=== PATIENT | male | born 1940 | race Caucasian/White ===

== ENCOUNTER 2024-11-13 14:07 | Outpatient (AMB) | payer MEDICARE, SELFPAY ==
--- NOTE | 2024-11-13 14:10 | MHC.OFFVIS ---
Vital Signs 11/13/24 14:12 Height 5 ft 10 in Weight 202 lb 13.204 oz BMI 29.1 BP 142/84 H Blood Pressure Location Lt brachial Position Sitting Pulse 84 Pulse Source Pulse Oximeter Pulse Oximetry (%) 95 Oxygen Delivery Method Room Air Intake Visit Reasons: ILD Allergies Sulfa (Sulfonamide Antibiotics) Allergy (Intermediate, Verified 11/13/24 14:17) Vomiting HPI Comments Details: The patient is here for pulmonary evaluation. The patient is an 83-year-old gentleman who has been a lifelong very [place]. The patient has had worsening dyspnea on exertion. Wyui-ul-gxethqcf severity. He has been evaluated by pulmonary in the past at [facility]. 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 Multiple CAT scans have been done. Apparently the last 1 was back in 2023 demonstrating pretty stable disease. He does state that his doctors have told him that this has been some slow progression. He also had pulmonary function studies in 2023 which I personally reviewed demonstrating a mild restrictive ventilatory defect consistent with his interstitial lung disease. What brings him in today is a worsening cough. Congestive in nature. Moderate severity. Worse when he lays flat. Sometimes has a hard time sleeping. He has been evaluated by ENT. He did have significant nasal congestion and also component of upper airway cough syndrome. He has been uncertain treatments with partial improvement. He has tried multiple inhalers without any significant improvement. The patient does have oxygen but uses couple L with activity. We did go for brief walking oximetry indeed he did desaturate down to 88% with minimal activity. At this point the patient does have evidence of chronic bronchitis. Likely a component of microaspiration and potentially reflux disease that can potentially worsen his hypersensitivity disease. The patient should be evaluated for connective tissue diseases and hypersensitivity pneumonitis specially with his line of work. But at this point will go ahead and try to my azithromycin 1st. Will get check an EKG and check a barium swallow. Will follow-up in 2-3 months and see his response to therapy. The patient did not really see much improvement with inhalers will hold off at this time. I do believe that with his chronic bronchitis in Acapella valve will be helpful in mucus clearance. In the meantime will continue with his nasal rinsing and nasal therapy. [facility] Medical History (Updated 11/13/24 @ 21:14 by Librado Dumont MD) Upper airway cough syndrome Chronic bronchitis Emphysema (subcutaneous) (surgical) resulting from a procedure ILD (interstitial lung disease) Chronic cough Review of Systems Const Denies weight loss Eyes Reports no additional complaints ENT Reports nasal congestion, Reports nasal discharge and Reports post nasal drip Card Denies chest pain and Reports dyspnea on exertion Resp Reports chest congestion, Reports cough, Reports dyspnea on exertion and Denies wheezing GI Denies dyspepsia Musc Reports no additional complaints Skin/Breast Denies rash Neuro Reports no additional complaints Jeremiah/Lymph Reports no additional complaints Aller/Immun Denies wheezing Physical Exam Vital Signs: Last Vital Signs Pulse 84 11/13/24 14:12 BP 142/84 H 11/13/24 14:12 Pulse Ox 95 11/13/24 14:12 Oxygen Delivery Method Room Air 11/13/24 14:12 BMI result Body Mass Index 29.1 Const General: comfortable HEENT Head: Yes normocephalic Neck Neck: Yes supple Chest Chest palpation & inspection: normal inspection of the chest Resp Effort & Inspection: normal respiratory effort Auscultation: rales bilateral in the lower lung leon Cardio Heart sounds: S1 normal heart sound present and S2 normal heart sound present GI Palpation (GI): Soft to palpation Skin General skin exam: no rashes or lesions noted Extrem General: Yes no clubbing, cyanosis or edema Assessment & Plan Assessment & Plan (1) Chronic cough: Code(s): R05.3 - Chronic cough Category: Medical (2) ILD (interstitial lung disease): Comment: Probablu UIP, ?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 Code(s): J84.9 - Interstitial pulmonary disease, unspecified Category: Medical (3) Chronic bronchitis: Code(s): J42 - Unspecified chronic bronchitis Category: Medical Qualifiers: Chronic bronchitis type: mixed simple and mucopurulent Qualified Code(s): J41.8 - Mixed simple and mucopurulent chronic bronchitis (4) Upper airway cough syndrome: Code(s): R05.8 - Other specified cough Category: Medical Plan continue nasal therapy start Azithromycin MWF EKG to check QT interval while on macrolide therapy Consider bloodwork for ILD, stable based on latest CT chest Barium swallow should sleep elevated Use portable oxygen 2L/pulse with activity CPT with acapella valve 2 times a day F/U 2 months Orders: Orders FL barium swallow Today K21.9 - Gastro-esophageal reflux disease without esophagitis ECG 12 lead EKG Today J44.9 - Chronic obstructive pulmonary disease, unspecified Medications: New azithromycin Take 1 tablet on Sunday/Sunday/Sunday 250 mg PO 3XW 12 tabs 2RF 28 days K21.9 - Gastro-esophageal reflux disease without esophagitis Coding Level of Care Code New Pt Level 5 (77701) Diagnoses Chronic cough R05.3 ILD (interstitial lung disease) J84.9 Mixed simple and mucopurulent chronic bronchitis J41.8 Chronic bronchitis type: mixed simple and mucopurulent Upper airway cough syndrome R05.8 Time Spent (min) 60
[2024-11-13 14:12] VITALS: BP 142/84; PULSE 84; O2SAT 95; BMI 29.1
--- OUTSIDE RECORDS SUMMARY | 2024-11-13 17:45 | XMS_ITS | Data Portability ---
Author Organization [place] - [facility], Allergy Address [address] [address] Care Team Providers Care Library Customer Service Clerk Name Role Phone [facility] Primary Care Provider [phone] Assessment Encounter Date Assessment Date Assessment LastModified by Organization Details LastModified Time 09/03/2024 09/03/2024 Patient describes a chronic cough since around December. He describes some improvement with nasal regimen prescribed by his ENT in [place] with Flonase and nasal saline. Unfortunately he continues with symptoms. My examination today including fiberoptic nasal endoscopy and laryngoscopy was unremarkable with no signs of infection in the sinuses or abnormality of the larynx. There was no pooling of secretions. 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 He is requesting a second opinion with provider education specialist in the [place] area. [email or web address] Not available 09/03/2024 10:39:33 Plan of Treatment Reminders Order Date Submit Date Provider Last Modified By Organization Details Last Modified Time Details Appointments None recorded. Lab None recorded. Referral pulmonologi st referral - pt wishes to have second opinion for chronic cough in setting of pulmonary fibrosis 2024 025 [email or web address] [place], [address], 14:22:13 Procedures None recorded. Surgeries None recorded. Imaging None recorded. Medication Orders None recorded. Patient TargetsNo targets recorded. Patient InstructionsNo instructions recorded. 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 pt wishes to have second opinion for chronic cough in setting of pulmonary fibrosis Referring Physician: Matt Gutiérrez, Otolaryngology, Encounter Date: 09/03/2024 Problems Name Problem SNOMED Code Status Onset Date Resolution Date Notes Provider Name and Address Organization Details Recorded Time Chronic cough 63577620 Active 025 MATT GUTIÉRREZ MD [address] [place] [address], [place], [address] , [facility] - [facility] 10:36:47 Chronic fibrosis of lung 31278345 Active 025 MATT GUTIÉRREZ MD [address] [place] [address], [place], [address] , [facility] - [facility] 10:39:59 Problem Notes None recorded. Procedures Surgical History Date Name Laterality Status Provider Name and Address Organization Details Recorded Time 09/03/2024 FOL_DP completed MATT GUTIÉRREZ MD [address] [place] [address],[place] [address], [place], [address], [facility] - [facility] 09/03/2024 10:36:39 Imaging Results None recorded. Procedure Notes None recorded. Medical Equipment None Reported. Allergies Allergen ID Allergen Name Allergen Category Reaction Reaction Severity Criticality Documentation Date Start Date Code Code System Note Provider Name and Address Organization Details Recorded Time 786998 Substance with sulfonami de structure and antibacte rial mechanism of action (substanc e) medicatio n Not available Not available Not available 09/03/2024 40103 8003 SNOMED Patricia davis [place] [facility] 10:03:18 Medications Name Sig Start Date Stop Date Status Note LastModified by Organization Details LastModified Time rosuvastatin 20 mg tablet active Not Available Not Available Not Available Vitals Date Recorded Body height Body mass index (BMI) Body weight Provider Name and Address Organization Details Last Updated DateTime 09/03/2024 177.8 cm 28.4 kg/m2 56306.29 g Patricia Romero [place] - [facility] 09/03/2024 10:03:10 Social History None recorded. Functional Status None recorded. Mental Status None recorded. Family History Nothing Reported. Medical History No medical history recorded. Past Encounters Encounter ID Performer Location Encounter Start Date Encounter Closed Date Diagnosis/Indication Diagnosis SNOMED-CT Code Diagnosis ICD10 Code Diagnosis Note [id number] MATT GUTIÉRREZ MD [facility] [address] [place] [address] 09/03/2024 09:44:52 09/03/2024 10:44:49 Chronic cough 75493326 R05.3 Chronic fi brosis of lung 96136384 J84.10 Health Concerns Section Related Observation LastModified by Organization Detai ls LastModified Time None Recorded Concern Status LastModified by Organization Details LastModified Time None Recorded Advance Directives Directive None Recorded Payers Encounter Date Sequence Insurance Name Policy Number Policy Draper Covered Member ID Draper Member ID Guarantor Name 09/03/2024 1 [place] [email or web address] Jeovanny Suazo Baca [id number] Jeovanny Baca 09/03/2024 2 [facility]: [facility] [id number] Jeovanny Suazo Baca [id number] Jeovanny Baca Notes Date Note Type Note Provider Name and Address Organization Details Recorded Time 5 text/html chronic coughnot associated with eatingno resolution with various inhalers5 while gardening he got irritation in lungsCT chest - pulm fibrosis is progressiveintermittent oxygen use when activerx prednisone - no sig responseOTC meds, robitussin no sig response04/14/24 ENT at [place], rx flonase and sinus irrigation, endoscopy noted mucus in sinus. felt dagbmhloafw22/7/24 ENT at [facility] [place] noted improvement on nasal exam MATT GUTIÉRREZ MD 100 [facility], [place], [address], [facility] - [facility] 09/03/2024 10:40:23
== END 2024-11-13 15:06 | disposition home or self-care (01) ==
LOC: HO.HPS 14:08
PROVIDERS: PCP Family Medicine; Referring Provider Otolaryngology; Visit Provider Hospitalist
DX: J84.9 Interstitial pulmonary disease, unspecified (principal); J41.8 Mixed simple and mucopurulent chronic bronchitis
CPT/HCPCS: 99205

== ENCOUNTER → 2024-11-13 14:07 | Outpatient (BNVA) | payer MEDICARE, SELFPAY | PROVIDERS: PCP Family Medicine; Referring Provider Otolaryngology; Visit Provider Hospitalist | DX: J41.8 Mixed simple and mucopurulent chronic bronchitis (principal); J84.9 Interstitial pulmonary disease, unspecified; R05.3 Chronic cough; R05.8 Other specified cough; Z99.81 Dependence on supplemental oxygen | CPT/HCPCS: 99202 ==

== ENCOUNTER 2025-02-09 09:07 | Outpatient (REF) | payer MEDICARE, SELFPAY ==
--- NOTE | ~2025-02-09 | FL_ITS ---
EXAMINATION: XR FLUOROSCOPY ESOPHAGRAM CLINICAL INFORMATION: Gastroesophageal reflux without esophagitis. Patient complaining of persistent cough, history of pulmonary fibrosis. COMPARISON: None TECHNIQUE: Fluoroscopic air esophagram examination was performed utilizing standard techniques with thin and thick barium and effervescent granules. Numerous spot images were obtained. Several fluoroscopic image hold cine sequences were also obtained. FINDINGS: ESOPHAGRAM: Lateral cine images of the oropharynx and hypopharynx demonstrate normal swallow mechanism with normal epiglottic inversion and soft palate elevation. There was significant laryngeal penetration, glottic and subglottic aspiration on the first swallow. This was silent to the patient. No further barium was given to the patient at this point due to silent aspiration. Limited imaging of the esophagus demonstrate normal caliber, contour, and mucosal pattern. Grossly no hiatus hernia in the upright position. There was notable disordered peristalsis. FLUOROSCOPY TIME: 16 seconds Number of Spot Images:1 Number of cines obtained: 1 DOSE AREA PRODUCT: 243.2 uGy-m2 (microgray-meter squared) FL/FL barium swallow with air IMPRESSION: 1. Gross laryngeal penetration, glottic and subglottic aspiration on the first swallow. This was silent to the patient. The examination was subsequently terminated due to silent aspiration. 2. Limited imaging of the esophagus demonstrate grossly normal caliber with disordered peristalsis. Electronically signed by: Santhosh Mendez MD 02/09/2025 10:31 AM EDT
--- OUTSIDE RECORDS SUMMARY | 2025-02-09 09:48 | XMS_ITS | Data Portability ---
Author Organization [place] - [facility], Allergy Address [address] [address] Care Team Providers Care It Systems Manager Name Role Phone [facility] Primary Care Provider Assessment Encounter Date Assessment Date Assessment LastModified by Organization Details LastModified Time 09/03/2024 09/03/2024 Patient describes a chronic cough since around December. He describes some improvement with nasal regimen prescribed by his ENT in [place] with Flonase and nasal saline. Unfortunately he continues with symptoms. My examination today including fiberoptic nasal endoscopy and laryngoscopy was unremarkable with no signs of infection in the sinuses or abnormality of the larynx. There was no pooling of secretions. 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 He is requesting a second opinion with addictions recovery specialist in the [place] area. [email or web address] Not available 09/03/2024 10:39:33 Plan of Treatment Reminders Order Date Submit Date Provider Last Modified By Organization Details Last Modified Time Details Appointments None recorded. Lab None recorded. Referral pulmonologi st referral - pt wishes to have second opinion for chronic cough in setting of pulmonary fibrosis 2024 025 [email or web address] Librado Dumont MD, [address] [place] [address] [place], [address], 14:22:13 Procedures None recorded. Surgeries None recorded. Imaging None recorded. Medication Orders None recorded. Patient TargetsNo targets recorded. Patient InstructionsNo instructions recorded. 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 pt wishes to have second opinion for chronic cough in setting of pulmonary fibrosis Referring Physician: Matt Gutiérrez, Otolaryngology, Encounter Date: 09/03/2024 Problems Name Problem SNOMED Code Status Onset Date Resolution Date Notes Provider Name and Address Organization Details Recorded Time Chronic cough 06798317 Active 025 MATT GUTIÉRREZ MD [address] [facility],[place] [address], [place], [address] , [place] - [facility] 10:36:47 Chronic fibrosis of lung 57487618 Active 025 MATT GUTIÉRREZ MD [address] [place] [address],[place] [address], [place], [address] , [facility] - [facility] 10:39:59 Problem Notes None recorded. Procedures Surgical History Date Name Laterality Status Provider Name and Address Organization Details Recorded Time 09/03/2024 FOL_DP completed MATT GUTIÉRREZ MD [address] [place] [address],[place] [address], [place], [address], [place] - [facility] 09/03/2024 10:36:39 Imaging Results None recorded. Procedure Notes None recorded. Medical Equipment None Reported. Allergies Allergen ID Allergen Name Allergen Category Reaction Reaction Severity Criticality Documentation Date Start Date Code Code System Note Provider Name and Address Organization Details Recorded Time 259350 Substance with sulfonami de structure and antibacte rial mechanism of action (substanc e) medicatio n Not available Not available Not available 09/03/2024 05895 8003 SNOMED Patricia davis [place] - [facility] 10:03:18 Medications Name Sig Start Date Stop Date Status Note LastModified by Organization Details LastModified Time rosuvastatin 20 mg tablet active Not Available Not Available Not Available Vitals Date Recorded Body height Body mass index (BMI) Body weight Provider Name and Address Organization Details Last Updated DateTime 09/03/2024 177.8 cm 28.4 kg/m2 25303.29 g Patricia Romero [place] - [facility] 09/03/2024 10:03:10 Social History None recorded. Functional Status None recorded. Mental Status None recorded. Family History Nothing Reported. Medical History No medical history recorded. Past Encounters Encounter ID Performer Location Encounter Start Date Encounter Closed Date Diagnosis/Indication Diagnosis SNOMED-CT Code Diagnosis ICD10 Code Diagnosis Note [id number] MATT GUTIÉRREZ MD [facility] 100 [facility] [place] [address] 09/03/2024 09:44:52 09/03/2024 10:44:49 Chronic cough 72121033 R05.3 Chronic fi brosis of lung 84319516 J84.10 Health Concerns Section Related Observation LastModified by Organization Detai ls LastModified Time None Recorded Concern Status LastModified by Organization Details LastModified Time None Recorded Advance Directives Directive None Recorded Payers Insurance Date Sequence Insurance Name Policy Number Policy Draper Covered Member ID Draper Member ID Guarantor Name 09/12/2024 1 [place] [employer] Jeovanny Suazo Baca [id number] Jeovanny Baca 09/12/2024 2 [facility] [id number] Jeovanny Suazo Baca [id number] Jeovanny Baca Notes Date Note Type Note Provider Name and Address Organization Details Recorded Time 5 text/html chronic coughnot associated with eatingno resolution with various inhalers5 while gardening he got irritation in lungsCT chest - pulm fibrosis is progressiveintermittent oxygen use when activerx prednisone - no sig responseOTC meds, robitussin no sig response04/14/24 ENT at [place], rx flonase and sinus irrigation, endoscopy noted mucus in sinus. felt agzugifwpfc06/7/24 ENT at [facility] [place] noted improvement on nasal exam MATT GUTIÉRREZ MD 100 [facility] [address], [place], [address], [facility] - [facility] 09/03/2024 10:40:23
== END 2025-02-09 09:08 | disposition home or self-care (01) ==
LOC: HO.XRAY 09:07
PROVIDERS: Visit Provider Hospitalist
DX: K21.9 Gastro-esophageal reflux disease without esophagitis (principal)
CPT/HCPCS: 74221

== ENCOUNTER → 2025-02-09 09:09 | Outpatient (BNV) | payer MEDICARE, SELFPAY | PROVIDERS: Visit Provider Radiology Diagnostic Radiology | DX: K21.9 Gastro-esophageal reflux disease without esophagitis (principal) | CPT/HCPCS: 74221 ==

== ENCOUNTER 2025-02-11 10:41 | Outpatient (REF) | payer MEDICARE, SELFPAY ==
--- NOTE | ~2025-02-11 | XR_ITS ---
CLINICAL HISTORY: J84.9 - Interstitial pulmonary disease, unspecified 2 view chest x-ray Comparison: None provided Findings: Lungs are clear without acute infiltrates. Chronic interstitial fibrosis in lung bases. No pneumothorax. Heart size enlarged. No acute bony abnormalities. Sternotomy. Left shoulder prosthesis. Impression: No acute processes This document has been electronically signed by: Ramana Santana MD on 02/11/2025 19:48:35
== END 2025-02-11 10:42 | disposition home or self-care (01) ==
LOC: HO.XRAY 10:41
PROVIDERS: PCP Family Medicine; Visit Provider Hospitalist
DX: R05.3 Chronic cough (principal); J84.9 Interstitial pulmonary disease, unspecified; J41.8 Mixed simple and mucopurulent chronic bronchitis; J90 Pleural effusion, not elsewhere classified
CPT/HCPCS: 71046; 99212

== ENCOUNTER 2025-02-11 10:41 | Outpatient (AMB) | payer MEDICARE, SELFPAY ==
[2025-02-11 10:48] VITALS: BP 120/80; PULSE 61; O2SAT 96; BMI 28.6
--- NOTE | 2025-02-11 10:48 | A.OFFVIS_ITS ---
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 The patient has had worsening dyspnea on exertion. Lfik-mw-qvhtfeva severity. He has been evaluated by pulmonary in the past at [facility]. 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 Multiple CAT scans have been done. Apparently the last 1 was back in 2023 demonstrating pretty stable disease. He does state that his doctors have told him that this has been some slow progression. He also had pulmonary function studies in 2023 which I personally reviewed demonstrating a mild restrictive ventilatory defect consistent with his interstitial lung disease. What brings him in today is a worsening cough. Congestive in nature. Moderate severity. Worse when he lays flat. Sometimes has a hard time sleeping. He has been evaluated by ENT. He did have significant nasal congestion and also component of upper airway cough syndrome. He has been uncertain treatments with partial improvement. He has tried multiple inhalers without any significant improvement. The patient does have oxygen but uses couple L with activity. We did go for brief walking oximetry indeed he did desaturate down to 88% with minimal activity. At this point the patient does have evidence of chronic bronchitis. Likely a component of microaspiration and potentially reflux disease that can potentially worsen his hypersensitivity disease. The patient should be evaluated for connective tissue diseases and hypersensitivity pneumonitis specially with his line of work. But at this point will go ahead and try to my azithromycin 1st. Will get check an EKG and check a barium swallow. Will follow-up in 2-3 months and see his response to therapy. The patient did not really see much improvement with inhalers will hold off at this time. I do believe that with his chronic bronchitis in Acapella valve will be helpful in mucus clearance. In the meantime will continue with his nasal rinsing and nasal therapy. 02/11/2025 the patient is here for a pulmonary follow-up visit. Overall the patient has been doing okay he still complaining of cough chest congestion. Initially was placed on azithromycin but there was a question of a QT prolongation switch over to doxycycline. Did not see any significant improvement in the mucus burden. Patient also did receive the Acapella valve but he was not sure how to use it. He did bring it in and we did given the instructions on how to use it appropriately. He has been sleeping elevated then that is been helping. Ultimately underwent is barium swallow demonstrating obvious laryngeal and also subglottic penetration of the barium consistent with aspirations. 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 Explained to him that the aspiration could not only cause interstitial lung disease but it can also worsen her. Therefore, will make a referral to speech pathology closer to his home in order to start therapy. In the meantime we did talk about dysphagia techniques that he can try in the meantime. Will start him on chlorhexidine mouthwash to help him with decreasing the risk of bacterial aspirations. In addition to that he was start on inhaler to try decrease the inflammation caused by the aspiration in the airways. The patient follow-up in 2-3 months. He has not issues prior to that he will call for an earlier assessment. [facility] Medical History (Updated 02/11/25 @ 11:29 by Librado Dumont MD) Aspiration pneumonitis Upper airway cough syndrome Chronic bronchitis Emphysema (subcutaneous) (surgical) resulting from a procedure ILD (interstitial lung disease) Chronic cough Social History (Updated 02/11/25 @ 10:52 by Bhavana Cadena CMA) Patient Tobacco Use Status: Never used Tobacco Review of Systems Const Denies weight loss Eyes Reports no additional complaints ENT Reports nasal congestion, Reports nasal discharge and Reports post nasal drip Card Denies chest pain and Reports dyspnea on exertion Resp Reports chest congestion, Reports cough, Reports dyspnea on exertion and Denies wheezing GI Denies dyspepsia Musc Reports no additional complaints Skin/Breast Denies rash Neuro Reports no additional complaints Jeremiah/Lymph Reports no additional complaints Aller/Immun Denies wheezing Physical Exam Vital Signs: Last Vital Signs Pulse 61 02/11/25 10:48 BP 120/80 02/11/25 10:48 Pulse Ox 96 02/11/25 10:48 Oxygen Delivery Method Nasal Cannula 02/11/25 10:48 Oxygen Flow Rate 3 02/11/25 10:48 BMI result Body Mass Index 28.6 Const General: comfortable HEENT Head: Yes normocephalic Neck Neck: Yes supple Chest Chest palpation & inspection: normal inspection of the chest Resp Effort & Inspection: normal respiratory effort Auscultation: rales bilateral in the lower lung leon Cardio Heart sounds: S1 normal heart sound present and S2 normal heart sound present GI Palpation (GI): Soft to palpation Skin General skin exam: no rashes or lesions noted Extrem General: Yes no clubbing, cyanosis or edema Assessment & Plan Assessment & Plan (1) Chronic cough: Code(s): R05.3 - Chronic cough Category: Medical (2) ILD (interstitial lung disease): Comment: Probablu UIP, ?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 Code(s): J84.9 - Interstitial pulmonary disease, unspecified Category: Medical (3) Chronic bronchitis: Code(s): J42 - Unspecified chronic bronchitis Category: Medical Qualifiers: Chronic bronchitis type: mixed simple and mucopurulent Qualified Code(s): J41.8 - Mixed simple and mucopurulent chronic bronchitis (4) Upper airway cough syndrome: Code(s): R05.8 - Other specified cough Category: Medical (5) Aspiration pneumonitis: Code(s): J69.0 - Pneumonitis due to inhalation of food and vomit Category: Medical Plan continue nasal therapy CXR Modfied barium swallow to further investigate his aspiration. Chlorhexadine mw start Wixela should sleep elevated Use portable oxygen 2L/pulse with activity CPT with acapella valve 2 times a day F/U 3-4 months Orders: Orders XR chest 2V Today J84.9 - Interstitial pulmonary disease, unspecified FL Modified Barium Swallow Today J69.0 - Pneumonitis due to inhalation of food and vomit, R13.10 - Dysphagia, unspecified Medications: New chlorhexidine gluconate 0.12% 15 mL buccal DAILY 473 mL 2RF 30 days fluticasone propion-salmeterol 250-50 mcg/dose (Wixela Inhub) 1 inh inhalation Q12H 60 ea 11RF 30 days Coding Level of Care Code Est Pt Level 4 (25819) Complex EM visit Add On G2211 Diagnoses Chronic cough R05.3 ILD (interstitial lung disease) J84.9 Mixed simple and mucopurulent chronic bronchitis J41.8 Chronic bronchitis type: mixed simple and mucopurulent Upper airway cough syndrome R05.8 Aspiration pneumonitis J69.0 Time Spent (min) 17
--- OUTSIDE RECORDS SUMMARY | 2025-02-11 12:39 | XMS_ITS | Data Portability ---
Author Organization [place] [facility], Allergy Address [address] [address] Care Team Providers Care Manager Lvn Name Role Phone [facility] Primary Care Provider Assessment Encounter Date Assessment Date Assessment LastModified by Organization Details LastModified Time 09/03/2024 09/03/2024 Patient describes a chronic cough since around December. He describes some improvement with nasal regimen prescribed by his ENT in [place] with Flonase and nasal saline. Unfortunately he continues with symptoms. My examination today including fiberoptic nasal endoscopy and laryngoscopy was unremarkable with no signs of infection in the sinuses or abnormality of the larynx. There was no pooling of secretions. 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 He is requesting a second opinion with data support specialist in the [place] area. [email or web address] Not available 09/03/2024 10:39:33 Plan of Treatment Reminders Order Date Submit Date Provider Last Modified By Organization Details Last Modified Time Details Appointments None recorded. Lab None recorded. Referral pulmonologi st referral - pt wishes to have second opinion for chronic cough in setting of pulmonary fibrosis 2024 [id number] [email or web address] Librado Dumont MD, [address] [place] [address] [place], [address], 14:22:13 Procedures None recorded. Surgeries None recorded. Imaging None recorded. Medication Orders None recorded. Patient TargetsNo targets recorded. Patient InstructionsNo instructions recorded. 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 hronic cough pt wishes to have second opinion for chronic cough in setting of pulmonary fibrosis Referring Physician: Matt Gutiérrez, Otolaryngology, Encounter Date: 09/03/2024 Problems Name Problem SNOMED Code Status Onset Date Resolution Date Notes Provider Name and Address Organization Details Recorded Time Chronic cough 17164030 Active 025 MATT GUTIÉRREZ MD [address] [facility],[place] [address], [place], [address] , [place] - [facility] 10:36:47 Chronic fibrosis of lung 90940103 Active 025 MATT GUTIÉRREZ MD [address] [place] [address],[place] [address], [place], [address] , [facility] - [facility] 10:39:59 Problem Notes None recorded. Procedures Surgical History Date Name Laterality Status Provider Name and Address Organization Details Recorded Time 09/03/2024 FOL_DP completed MATT GUTIÉRREZ MD [address] [place] [address],[place] [address], [place], [address], [place] - [facility] 09/03/2024 10:36:39 Imaging Results None recorded. Procedure Notes None recorded. Medical Equipment None Reported. Allergies Allergen ID Allergen Name Allergen Category Reaction Reaction Severity Criticality Documentation Date Start Date Code Code System Note Provider Name and Address Organization Details Recorded Time 430090 Substance with sulfonami de structure and antibacte rial mechanism of action (substanc e) medicatio n Not available Not available Not available 09/03/2024 [id number] SNOMED Patricia davis [place] - [facility] 10:03:18 Medications Name Sig Start Date Stop Date Status Note LastModified by Organization Details LastModified Time rosuvastatin 20 mg tablet active Not Available Not Available Not Available Vitals Date Recorded Body height Body mass index (BMI) Body weight Provider Name and Address Organization Details Last Updated DateTime 09/03/2024 177.8 cm 28.4 kg/m2 14433.29 g Patricia Romero [place] [facility] 09/03/2024 10:03:10 Social History None recorded. Functional Status None recorded. Mental Status None recorded. Family History Nothing Reported. Medical History No medical history recorded. Past Encounters Encounter ID Performer Location Encounter Start Date Encounter Closed Date Diagnosis/Indication Diagnosis SNOMED-CT Code Diagnosis ICD10 Code Diagnosis Note [id number] MATT GUTIÉRREZ MD [facility] [address] [facility] [place] [address] 09/03/2024 09:44:52 09/03/2024 10:44:49 Chronic cough 66937533 R05.3 Chronic fi brosis of lung 79930802 J84.10 Health Concerns Section Related Observation LastModified by Organization Detai ls LastModified Time None Recorded Concern Status LastModified by Organization Details LastModified Time None Recorded Advance Directives Directive None Recorded Payers Insurance Date Sequence Insurance Name Policy Number Policy Draper Covered Member ID Draper Member ID Guarantor Name 09/12/2024 1 [place]ICARE [place]: [employer] Jeovanny Suazo Baca [id number] Jeovanny Baca 09/12/2024 2 [facility] [id number] Jeovanny Suazo Baca [id number] Jeovanny Baca Notes Date Note Type Note Provider Name and Address Organization Details Recorded Time 5 text/html chronic coughnot associated with eatingno resolution with various inhalers5 while gardening he got irritation in lungsCT chest - pulm fibrosis is progressiveintermittent oxygen use when activerx prednisone - no sig responseOTC meds, robitussin no sig response04/14/24 ENT at [place], rx flonase and sinus irrigation, endoscopy noted mucus in sinus. felt [id number]/7/24 ENT at [facility] noted improvement on nasal exam MATT GUTIÉRREZ MD [address] [facility] [address], [place], [address], [facility] - [facility] 09/03/2024 10:40:23
== END 2025-02-11 11:26 | disposition home or self-care (01) ==
LOC: HO.HPS 10:41
PROVIDERS: PCP Family Medicine; Visit Provider Hospitalist
DX: R05.3 Chronic cough (principal); J84.9 Interstitial pulmonary disease, unspecified; J41.8 Mixed simple and mucopurulent chronic bronchitis; R05.8 Other specified cough; J69.0 Pneumonitis due to inhalation of food and vomit
CPT/HCPCS: 99214; G2211

== ENCOUNTER → 2025-02-11 11:35 | Outpatient (BNV) | payer MEDICARE, SELFPAY | PROVIDERS: PCP Family Medicine; Visit Provider Radiology Diagnostic Radiology | DX: J84.9 Interstitial pulmonary disease, unspecified (principal) | CPT/HCPCS: 71046 ==

== ENCOUNTER 2025-03-31 13:59 | Outpatient (REF) | payer MEDICARE, SELFPAY ==
--- NOTE | ~2025-03-31 | FL_ITS ---
EXAMINATION: XR BARIUM SWALLOW CLINICAL INFORMATION: Dysphagia. COMPARISON: None available. TECHNIQUE: Modified barium swallow was performed under lateral fluoroscopy in presence of speech therapist following oral administration of various consistencies of food coated barium. FINDINGS/ FL/FL Modified Barium Swallow IMPRESSION: On oral administration of thin barium there is caty laryngeal penetration but no aspiration seen. There is mild retention of barium in the valleculae. On oral administration of honey consistency barium there is laryngeal penetration without aspiration. Rest of the barium swallow is unremarkable. On oral administration of barium coated saltine crackers, nectar consistency barium there is normal propagation bolus from the oral cavity through the pharynx into esophagus without obstruction. No laryngeal penetration or aspiration seen. Trace collection seen in the valleculae and piriform sinus which cleared with subsequent swallowing. FLUOROSCOPY TIME: 2 minutes 2 seconds. DOSE AREA PRODUCT: 1862 uGy-m2 (microgray-meter squared) Electronically signed by: Jacky London MD 03/31/2025 04:48 PM EDT
--- NOTE | 2025-04-02 17:17 | MHC.SL.IMP ---
Date of Plan of Treatment: 04/02/25 Onset of Symptoms/Illness: 02/11/25 Date Treatment Started: 04/02/25 Admitting Diagnosis: Dysphagia Primary Speech & Language Diagnosis: R13.12 Oropharyngeal Phase Dysphagia Reason for Today's Visit: 50931 Modified Barium Swallow Study Pre-evaluation Dietary Consistencies: Regular Pre-evaluation Liquid Consistency: Thin Pre-evaluation Medication Administration: Whole with Liquid Medical History: Modified Barium Swallow Study Fluoroscopic Evaluation of Swallowing Function CPT Code 78585 Evaluation Year: 2024 Reason for Study: Recent barium swallow x-ray w/ aspiration Referring Physician: Librado Dumont MD Evaluating Clinician: Yuki Rueda MA, CCC-PUBLIC INFORMATION OFFICER Study Number: 1 Patient Name: Jeovanny Baca Status: Outpatient Age: 84 Sex: Male Medical History Medical History (Updated 11/13/24 @ 21:14 by Librado Dumont MD) Upper airway cough syndrome Chronic bronchitis Emphysema (subcutaneous) (surgical) resulting from a procedure ILD (interstitial lung disease) Chronic cough Current (pre-evaluation) Intake/Diet: Route: PO Diet Grade: Regular Liquid Consistencies: Thin Pre-Study Functional Oral Intake Scale (FOIS): 7- Total oral intake with no restrictions Pain: None reported at time of study SUBJECTIVE: Patient is an 84 year old male referred for a modified barium swallow study by Dr. Dumont from the Pulmonology office. Patient reportedly had a recent barium swallow study on 02/11 showing silent aspiration on first swallow and esophagus with disordered peristalsis. The exam was terminated and the patient was subsequently sent for a chest x-ray two days later which was unremarkable for acute processes. Patient is followed by pulmonology for peripheral interstitial lung disease and was previously seen by ENT for significant nasal congestion and upper airway cough syndrome. There was also concern of microaspiration as well, which prompted referral for barium swallow study. Patient denies having history of dysphagia, but understands he was sent for this exam due to aspiration seen on barium swallow. He denies coughing, choking, odynophagia, and globus sensation. Oral Motor Exam Facial Symmetry: Symmetrical Mouth Occlusion: Normal Oral-Facial Teeth Characteristics: Intact/Normal Tongue Size: Normal Is patient able to manage secretions?: Yes Is patient able to produce volitional cough?: Yes Food and Liquid Trials: Oral Impairment: Lip Closure: Did not test Oral Impairment: Tongue Control During Bolus Hold: 1=Escape to lateral buccal cavity/floor of mouth (FOM) Oral Impairment: Bolus Preparation/Mastication: 0=Timely and efficient chewing and mashing Oral Impairment: Bolus Transport/Lingual Motion: 2=Slowed tongue motion Oral Impairment: Oral Residue: 1=Trace residue lining oral structures Oral Impairment:Initiation of Pharyngeal Swallow: 2=Bolus head at posterior laryngeal surface of epiglottis Pharyngeal Impairment: Soft Palate Elevation: 0=No bolus between soft palate (SP)/pharyngeal wall (PW) Pharyngeal Impairment: Laryngeal Elevation: 0=Complete superior movement of thyroid cartilage (see description) Pharyngeal Impairment: Anterior Hyoid Excursion: 0=Complete anterior movement Pharyngeal Impairment: Epiglottic Movement: 1=Partial inversion Pharyngeal Impairment: Laryngeal Vestibular Closure:: 1=Incomplete: narrow column air/contrast in laryngeal vestibule Pharyngeal Impairment: Pharyngeal Stripping Wave: 1=Present: diminished Pharyngeal Impairment: Pharyngeal Contraction: Did not test Pharyngeal Impairment: Pharyngoesophageal Segment Openin=Complete distension and complete duration: no obstruction of flow Pharyngeal Impairment: Tongue Base (TB) Retraction: 2=Narrow column of contrast/air between TB and posterior PW Pharyngeal Impairment: Pharyngeal Residue: 2=Collection of residue within or on pharyngeal structures Pharyngeal Impairment: Esophageal Clearance Upright Position: Did not test Impressions and Recommendations OBJECTIVE: Time-out: performed at 14:45 Evaluation Start: 14:30; Stop: 14:35 Patient Positioning: Standing Viewing Planes: LATERAL ONLY Contrast: MBSImP? Standardized Protocol using commercially prepared, standardized Barium viscosities, including: Varibar? THIN LIQUID (40% w/v, <15 cps) , Varibar? NECTAR (40% w/v, <150-450 cps) , Varibar? THIN HONEY (40% w/v, <800-1800 cps) , Varibar? PUDDING (40% w/v, <5435-8316 cps) , 1/2 Shortbread Cookie (1 x1 x.25 ) MBSImP ID: [id number] MBSImP Results: Lip closure for intraoral bolus containment could not be assessed due to logistical reasons not related to physiologic impairment. Tongue control during bolus hold allowed bolus escape to the lateral buccal cavity/floor of mouth. Bolus preparation and mastication resulted in timely and efficient chewing and mashing. Bolus transport/lingual motion was with slowed tongue motion. Oral residue was a trace, lining oral structures. Initiation of the pharyngeal swallow occurred as the bolus head was at the posterior laryngeal surface of the epiglottis. Soft palate elevation resulted in no bolus between the soft palate and the pharyngeal wall. Laryngeal elevation demonstrated complete superior movement of the thyroid cartilage with complete approximation of the arytenoids to the epiglottic petiole. Anterior hyoid excursion demonstrated complete anterior movement. Epiglottic movement resulted in partial inversion. Laryngeal vestibular closure was incomplete, with a narrow column of air/contrast noted within the laryngeal vestibule at the height of the swallow. Pharyngeal stripping wave was present, but diminished. Pharyngeal contraction could not be determined due to logistical reasons not related to physiologic impairment. Pharyngoesophageal segment opening was completely distended for complete duration with no obstruction of bolus flow. Tongue base retraction allowed a narrow column of contrast or air between the retracted tongue base and the posterior pharyngeal wall. Pharyngeal residue was a collection of residue within or on pharyngeal structures. Esophageal clearance in the upright position could not be assessed due to logistical reasons not related to physiologic impairment. Oral Impairment Score: 5 (absence of score, component 1) Pharyngeal Impairment Score: 7 (absence of score, component 13) Esophageal Impairment Score: --- (absence of score, component 17) Laryngeal Penetration and Aspiration: Neither penetration nor aspiration was observed in today's study with Cookie, Pudding-thick, Honey-thick. Penetration was observed in today's study. Blue Ball-thick, Thin Contrast entered the airway, remained above the vocal folds, and were ejected from the airway. ASSESSMENT: This exam was conducted by the speech pathologist and the radiologist. Patient was standing for lateral view. He fed himself independently and trialed the following consistencies: -Thin liquid (individual cup sips) -Blue Ball thick liquid (individual cup sips) -Honey thick liquid (individual cup sips) -Puree (mixture applesauce w/ barium pudding) -Regular (Sheela Doone cookie coated w/ barium pudding) There was escape of trace liquid to the floor of mouth, but no posterior spilling from the oral cavity. Mastication was timely and efficient. Posterior lingual movement for bolus transport was mildly slowed. Trace lingual residue cleared on subsequent swallows. Pharyngeal swallow trigger initiated as the bolus head reached the posterior laryngeal surface of the epiglottis. No evidence of nasopharyngeal reflux. Complete laryngeal elevation with partial epiglottic inversion and incomplete laryngeal vestibular closure. There was trace penetration above the vocal folds on trials of thin and nectar thick consistencies, which cleared on cued throat clearing. No subsequent aspiration. Minimal pharyngeal residue was reduced with dry swallows. -Thin liquid: No aspiration or penetration on trial of trace liquid (small sip from the cup). With larger bolus, there was trace penetration above the vocal folds. Patient did not elicit protective cough. He was cued to clear his throat, which cleared contrast from the trachea. Mild residue on the posterior tongue with pooling to the floor of mouth. Mild pharyngeal residue as well mostly in the valleculae, with trace pooling in the pyriforms. Residue was cleared with dry swallows. -Blue Ball thick liquid: Trace penetration above the vocal folds, cleared with cued throat clearing. No subsequent aspiration. Trace residue on the tongue and in the valleculae cleared with dry swallows. -Honey thick liquid: No evidence of aspiration or penetration. Increased pooling in the valleculae, which was reduced with dry swallows. -Puree: No evidence of aspiration or penetration. Trace residue on the tongue and in the valleculae cleared with dry swallows. -Regular solid: No evidence of aspiration or penetration. Trace residue on the tongue, in the floor of mouth, and in the valleculae cleared with dry swallows. The following compensatory strategies have not been used until today's study, but when employed, improved swallowing function: Additional Swallow(s) per Bolus decreased Oral Residue, Pharyngeal Residue Throat Clear eliminated Penetration The following compensatory strategies appear to have had a negative impact on swallowing function: Honey-thick Liquid increased Oral Residue, Pharyngeal Residue Liquid Intake Recommendation: Thin Liquid Intake Strategies: Small Sips, No Straws, Double Swallow Dietary Recommendations: Regular Medication Administration: Whole with Liquid Please contact the pharmacy regarding appropriate crushable or liquid drug formulations that are available whenever modified delivery is recommended. Compensatory Strategies Recommended: Sitting Upright (90 deg), Double Swallow, No Straw, Small Bites and Sips, Alternate Liquids/Solids, Rate of Ingestion Change, Avoid Specific Foods Recommendation for Speech Therapy: Outpatient Speech Therapy Text Comment: Intake Recommendations: Route: PO Diet Grade: Regular Liquid Consistencies: Thin Post-Study Functional Oral Intake Scale (FOIS): 6- Total oral intake with no special preparation, but must avoid specific foods or liquid items Patient presents with mild oropharyngeal dysphagia. Patient with mildly slowed lingual transport, otherwise intact mastication, good oral clearing, oral phase was mostly unremarkable. Note partial laryngeal vestibular closure and partial epiglottic inversion, resulting in partially open airway. There was trace penetration above the vocal folds on trials of thin and nectar thick liquids. Patient did not elicit spontaneous protective cough. He was instructed to clear his throat, which cleared contrast from the trachea. No subsequent aspiration. Minimal oral and pharyngeal residue cleared with dry swallows. Recommend REGULAR texture solids and THIN liquids, pills WHOLE in LIQUID. Previous barium swallow x-ray 02/11 showing aspiration, indicates positioning could pose risk to aspiration. This exam showing penetration with liquids, which effectively cleared with volitional throat clearing. The following strategies are recommended to maximize safety: -take small bites -chew food well -dry swallow between bites to clear residue -take small sips -avoid the use of straws -clear throat and then re-swallow between sips -maintain upright position during PO intake and for at least 30 minutes afterwards Therapy Recommendations: Therapy will be continued Frequency per Week: 1 Number of Weeks: 4 Patient is recommended 2-4 follow-up visits w/ PUBLIC INFORMATION OFFICER for further education in regards to MBSS findings and recommended strategies Half-Way Goals: ? The patient and/or family will participate in further education for swallowing goals. Short Term Goals: ? Diet - The patient will tolerate a regular diet with thin liquids without signs or symptoms of penetration/aspiration 100% of the time. ? Guidelines - The patient will comply with/recall the following guidelines/strategies 100% of the time with no cuing: Bolus Volume Change, Rate of Ingestion Change, Additional Swallow(s) per Bolus, Throat Clear. ? Education - The patient, family, caregiver will verbalize/demonstrate understanding of the results of this evaluation, the above recommendations, and the swallowing guidelines. Frequency/Duration: 2-4 f/u Date Range for Service Requested: Timeline to reassess: PRN Clinician - Supplemental, Miscellaneous Communication: It is important to note MBSS objective studies are snapshots in time and Patient function might vary with factors such as time of day or concomitant medical conditions. For this reason, the final treatment plan for this patient should rest with their medical care team. Additional recommendations should be considered with the totality of the Patient in mind. Thank for the opportunity to participate in the care of this patient. If you have any questions about the content of this report, please contact the [facility] at [facility]. Education: Education regarding findings from today's study and plans for therapy were provided to Patient only through Verbal Instruction. Understanding was expressed by the Patient only. Behavioral Geneticist Clinician/Clinical Fellow: No Supervisory Statement: N/A Speech Language Pathologist: Yuki Rueda M.A., CCC-PUBLIC INFORMATION OFFICER
--- NOTE | 2025-04-02 17:22 | MHC.SL.IMP ---
Jeovanny Baca Male : 1940 [facility]# [id number] 04/02/25 17:17 - Speech MBSImP:MBSS by Yuki Rueda MA, CCC-RN UTILIZATION MANAGEMENT [facility] Num: [id number] : 1940 Patient Age: 84 Date of Plan of Treatment: 03/31/25 Onset of Symptoms/Illness: 02/11/25 Date Treatment Started: 03/31/25 Admitting Diagnosis: Dysphagia Primary Speech & Language Diagnosis: R13.12 Oropharyngeal Phase Dysphagia Reason for Today's Visit: 56977 Modified Barium Swallow Study Pre-evaluation Dietary Consistencies: Regular Pre-evaluation Liquid Consistency: Thin Pre-evaluation Medication Administration: Whole with Liquid Medical History: Modified Barium Swallow Study Fluoroscopic Evaluation of Swallowing Function CPT Code 84826 Evaluation Year: 2024 Reason for Study: Recent barium swallow x-ray w/ aspiration Referring Physician: Librado Dumont MD Evaluating Clinician: Yuki Rueda MA, CCC-RN UTILIZATION MANAGEMENT [facility] Study Number: 1 Patient Name: Jeovanny Baca Status: Outpatient Age: 84 Sex: Male Medical History Medical History (Updated 11/13/24 @ 21:14 by Librado Dumont MD) Upper airway cough syndrome Chronic bronchitis Emphysema (subcutaneous) (surgical) resulting from a procedure ILD (interstitial lung disease) Chronic cough Current (pre-evaluation) Intake/Diet: Route: PO Diet Grade: Regular Liquid Consistencies: Thin Pre-Study Functional Oral Intake Scale (FOIS): 7- Total oral intake with no restrictions Pain: None reported at time of study SUBJECTIVE: Patient is an 84 year old male referred for a modified barium swallow study by Dr. Dumont from the Pulmonology office. Patient reportedly had a recent barium swallow study on 02/11 showing silent aspiration on first swallow and esophagus with disordered peristalsis. The exam was terminated and the patient was subsequently sent for a chest x-ray two days later which was unremarkable for acute processes. Patient is followed by pulmonology for peripheral interstitial lung disease and was previously seen by ENT for significant nasal congestion and upper airway cough syndrome. There was also concern of microaspiration as well, which prompted referral for barium swallow study. Patient denies having history of dysphagia, but understands he was sent for this exam due to aspiration seen on barium swallow. He denies coughing, choking, odynophagia, and globus sensation. Oral Motor Exam Facial Symmetry: Symmetrical Mouth Occlusion: Normal Oral-Facial Teeth Characteristics: Intact/Normal Tongue Size: Normal Is patient able to manage secretions?: Yes Is patient able to produce volitional cough?: Yes Food and Liquid Trials: Oral Impairment: Lip Closure: Did not test Oral Impairment: Tongue Control During Bolus Hold: 1=Escape to lateral buccal cavity/floor of mouth (FOM) Oral Impairment: Bolus Preparation/Mastication: 0=Timely and efficient chewing and mashing Oral Impairment: Bolus Transport/Lingual Motion: 2=Slowed tongue motion Oral Impairment: Oral Residue: 1=Trace residue lining oral structures Oral Impairment:Initiation of Pharyngeal Swallow: 2=Bolus head at posterior laryngeal surface of epiglottis Pharyngeal Impairment: Soft Palate Elevation: 0=No bolus between soft palate (SP)/pharyngeal wall (PW) Pharyngeal Impairment: Laryngeal Elevation: 0=Complete superior movement of thyroid cartilage (see description) Pharyngeal Impairment: Anterior Hyoid Excursion: 0=Complete anterior movement Pharyngeal Impairment: Epiglottic Movement: 1=Partial inversion Pharyngeal Impairment: Laryngeal Vestibular Closure:: 1=Incomplete: narrow column air/contrast in laryngeal vestibule Pharyngeal Impairment: Pharyngeal Stripping Wave: 1=Present: diminished Pharyngeal Impairment: Pharyngeal Contraction: Did not test Pharyngeal Impairment: Pharyngoesophageal Segment Openin=Complete distension and complete duration: no obstruction of flow Pharyngeal Impairment: Tongue Base (TB) Retraction: 2=Narrow column of contrast/air between TB and posterior PW Pharyngeal Impairment: Pharyngeal Residue: 2=Collection of residue within or on pharyngeal structures Pharyngeal Impairment: Esophageal Clearance Upright Position: Did not test Impressions and Recommendations OBJECTIVE: Time-out: performed at 14:45 Evaluation Start: 14:30; Stop: 14:35 Patient Positioning: Standing Viewing Planes: LATERAL ONLY Contrast: MBSImP? Standardized Protocol using commercially prepared, standardized Barium viscosities, including: Varibar? THIN LIQUID (40% w/v, <15 cps) , Varibar? NECTAR (40% w/v, <150-450 cps) , Varibar? THIN HONEY (40% w/v, <800-1800 cps) , Varibar? PUDDING (40% w/v, <7934-2519 cps) , 1/2 Shortbread Cookie (1 x1 x.25 ) MBSImP ID: [id number] [facility] Results: Lip closure for intraoral bolus containment could not be assessed due to logistical reasons not related to physiologic impairment. Tongue control during bolus hold allowed bolus escape to the lateral buccal cavity/floor of mouth. Bolus preparation and mastication resulted in timely and efficient chewing and mashing. Bolus transport/lingual motion was with slowed tongue motion. Oral residue was a trace, lining oral structures. Initiation of the pharyngeal swallow occurred as the bolus head was at the posterior laryngeal surface of the epiglottis. Soft palate elevation resulted in no bolus between the soft palate and the pharyngeal wall. Laryngeal elevation demonstrated complete superior movement of the thyroid cartilage with complete approximation of the arytenoids to the epiglottic petiole. Anterior hyoid excursion demonstrated complete anterior movement. Epiglottic movement resulted in partial inversion. Laryngeal vestibular closure was incomplete, with a narrow column of air/contrast noted within the laryngeal vestibule at the height of the swallow. Pharyngeal stripping wave was present, but diminished. Pharyngeal contraction could not be determined due to logistical reasons not related to physiologic impairment. Pharyngoesophageal segment opening was completely distended for complete duration with no obstruction of bolus flow. Tongue base retraction allowed a narrow column of contrast or air between the retracted tongue base and the posterior pharyngeal wall. Pharyngeal residue was a collection of residue within or on pharyngeal structures. Esophageal clearance in the upright position could not be assessed due to logistical reasons not related to physiologic impairment. Oral Impairment Score: 5 (absence of score, component 1) Pharyngeal Impairment Score: 7 (absence of score, component 13) Esophageal Impairment Score: --- (absence of score, component 17) Laryngeal Penetration and Aspiration: Neither penetration nor aspiration was observed in today's study with Cookie, Pudding-thick, Honey-thick. Penetration was observed in today's study. [place]-thick, Thin Contrast entered the airway, remained above the vocal folds, and were ejected from the airway. ASSESSMENT: This exam was conducted by the speech pathologist and the radiologist. Patient was standing for lateral view. He fed himself independently and trialed the following consistencies: -Thin liquid (individual cup sips) -[place] thick liquid (individual cup sips) -Honey thick liquid (individual cup sips) -Puree (mixture applesauce w/ barium pudding) -Regular (Sheela Doone cookie coated w/ barium pudding) There was escape of trace liquid to the floor of mouth, but no posterior spilling from the oral cavity. Mastication was timely and efficient. Posterior lingual movement for bolus transport was mildly slowed. Trace lingual residue cleared on subsequent swallows. Pharyngeal swallow trigger initiated as the bolus head reached the posterior laryngeal surface of the epiglottis. No evidence of nasopharyngeal reflux. Complete laryngeal elevation with partial epiglottic inversion and incomplete laryngeal vestibular closure. There was trace penetration above the vocal folds on trials of thin and nectar thick consistencies, which cleared on cued throat clearing. No subsequent aspiration. Minimal pharyngeal residue was reduced with dry swallows. -Thin liquid: No aspiration or penetration on trial of trace liquid (small sip from the cup). With larger bolus, there was trace penetration above the vocal folds. Patient did not elicit protective cough. He was cued to clear his throat, which cleared contrast from the trachea. Mild residue on the posterior tongue with pooling to the floor of mouth. Mild pharyngeal residue as well mostly in the valleculae, with trace pooling in the pyriforms. Residue was cleared with dry swallows. -[place] thick liquid: Trace penetration above the vocal folds, cleared with cued throat clearing. No subsequent aspiration. Trace residue on the tongue and in the valleculae cleared with dry swallows. -Honey thick liquid: No evidence of aspiration or penetration. Increased pooling in the valleculae, which was reduced with dry swallows. -Puree: No evidence of aspiration or penetration. Trace residue on the tongue and in the valleculae cleared with dry swallows. -Regular solid: No evidence of aspiration or penetration. Trace residue on the tongue, in the floor of mouth, and in the valleculae cleared with dry swallows. The following compensatory strategies have not been used until today's study, but when employed, improved swallowing function: Additional Swallow(s) per Bolus decreased Oral Residue, Pharyngeal Residue Throat Clear eliminated Penetration The following compensatory strategies appear to have had a negative impact on swallowing function: Honey-thick Liquid increased Oral Residue, Pharyngeal Residue Liquid Intake Recommendation: Thin Liquid Intake Strategies: Small Sips, No Straws, Double Swallow Dietary Recommendations: Regular Medication Administration: Whole with Liquid Please contact the pharmacy regarding appropriate crushable or liquid drug formulations that are available whenever modified delivery is recommended. Compensatory Strategies Recommended: Sitting Upright (90 deg), Double Swallow, No Straw, Small Bites and Sips, Alternate Liquids/Solids, Rate of Ingestion Change, Avoid Specific Foods Recommendation for Speech Therapy: Outpatient Speech Therapy Text Comment: Intake Recommendations: Route: PO Diet Grade: Regular Liquid Consistencies: Thin Post-Study Functional Oral Intake Scale (FOIS): 6- Total oral intake with no special preparation, but must avoid specific foods or liquid items Patient presents with mild oropharyngeal dysphagia. Patient with mildly slowed lingual transport, otherwise intact mastication, good oral clearing, oral phase was mostly unremarkable. Note partial laryngeal vestibular closure and partial epiglottic inversion, resulting in partially open airway. There was trace penetration above the vocal folds on trials of thin and nectar thick liquids. Patient did not elicit spontaneous protective cough. He was instructed to clear his throat, which cleared contrast from the trachea. No subsequent aspiration. Minimal oral and pharyngeal residue cleared with dry swallows. Recommend REGULAR texture solids and THIN liquids, pills WHOLE in LIQUID. Previous barium swallow x-ray 02/11 showing aspiration, indicates positioning could pose risk to aspiration. This exam showing penetration with liquids, which effectively cleared with volitional throat clearing. The following strategies are recommended to maximize safety: -take small bites -chew food well -dry swallow between bites to clear residue -take small sips -avoid the use of straws -clear throat and then re-swallow between sips -maintain upright position during PO intake and for at least 30 minutes afterwards Therapy Recommendations: Therapy will be continued Frequency per Week: 1 Number of Weeks: 4 Patient is recommended 2-4 follow-up visits w/ RN UTILIZATION MANAGEMENT [facility] for further education in regards to MBSS findings and recommended strategies Stock Fitter Goals: ? The patient and/or family will participate in further education for swallowing goals. Short Term Goals: ? Diet - The patient will tolerate a regular diet with thin liquids without signs or symptoms of penetration/aspiration 100% of the time. ? Guidelines - The patient will comply with/recall the following guidelines/strategies 100% of the time with no cuing: Bolus Volume Change, Rate of Ingestion Change, Additional Swallow(s) per Bolus, Throat Clear. ? Education - The patient, family, caregiver will verbalize/demonstrate understanding of the results of this evaluation, the above recommendations, and the swallowing guidelines. Frequency/Duration: 2-4 f/u Date Range for Service Requested: Timeline to reassess: PRN Clinician - Supplemental, Miscellaneous Communication: It is important to note MBSS objective studies are snapshots in time and Patient function might vary with factors such as time of day or concomitant medical conditions. For this reason, the final treatment plan for this patient should rest with their medical care team. Additional recommendations should be considered with the totality of the Patient in mind. Thank for the opportunity to participate in the care of this patient. If you have any questions about the content of this report, please contact the [facility] at [facility]. Education: Education regarding findings from today's study and plans for therapy were provided to Patient only through Verbal Instruction. Understanding was expressed by the Patient only. Second Chef Clinician/Clinical Fellow: No Supervisory Statement: N/A Speech Language Pathologist: Yuki Rueda M.A., CCC-RN UTILIZATION MANAGEMENT [facility] Second Chef Clinician/Clinical Fellow: No Supervisory Statement: N/A Speech Language Pathologist: Yuki Rueda M.A. CCC-RN UTILIZATION MANAGEMENT [facility]
== END 2025-03-31 14:00 | disposition home or self-care (01) ==
LOC: HO.XRAY 13:59
PROVIDERS: PCP Student in an Organized Health Care Education/Training Program; Visit Provider Hospitalist
DX: R13.10 Dysphagia, unspecified (principal); J69.0 Pneumonitis due to inhalation of food and vomit
CPT/HCPCS: 74230; 92611

== ENCOUNTER → 2025-03-31 14:30 | Outpatient (BNV) | payer MEDICARE, SELFPAY | PROVIDERS: PCP Student in an Organized Health Care Education/Training Program; Visit Provider Radiology Diagnostic Radiology | DX: R13.10 Dysphagia, unspecified (principal) | CPT/HCPCS: 74230 ==

== ENCOUNTER 2025-04-15 08:42 | Outpatient (RCR) | payer MEDICARE, SELFPAY | END 2025-04-30 15:45 | disposition home or self-care (01) | LOC: HO.SH 08:42 | PROVIDERS: PCP Student in an Organized Health Care Education/Training Program; Visit Provider Hospitalist | DX: R13.10 Dysphagia, unspecified (principal); J69.0 Pneumonitis due to inhalation of food and vomit | CPT/HCPCS: 92526 ==

== ENCOUNTER 2025-05-06 10:10 | Outpatient (AMB) | payer MEDICARE, SELFPAY ==
--- NOTE | 2025-05-06 10:23 | A.OFFVIS_ITS ---
Vital Signs 05/06/25 10:24 Height 5 ft 10 in Weight 194 lb 0.108 oz BMI 27.8 BP 140/60 H Blood Pressure Location Rt brachial Position Sitting Pulse 54 Pulse Source Pulse Oximeter Pulse Oximetry (%) 94 Oxygen Delivery Method Room Air Intake Visit Reasons: ILD Orthopedic Specialist Required: No Accompanied by: Spouse Allergies Sulfa (Sulfonamide Antibiotics) Allergy (Intermediate, Verified 05/06/25 10:26) Vomiting HPI Comments Details: The patient is an 84-year-old gentleman who has been a lifelong very [place]. The patient has had worsening dyspnea on exertion. [id number] severity. He has been evaluated by pulmonary in the past at [facility]. 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 Multiple CAT scans have been done. Apparently the last 1 was back in 2023 demonstrating pretty stable disease. He does state that his doctors have told him that this has been some slow progression. He also had pulmonary function studies in 2023 which I personally reviewed demonstrating a mild restrictive ventilatory defect consistent with his interstitial lung disease. What brings him in today is a worsening cough. Congestive in nature. Moderate severity. Worse when he lays flat. Sometimes has a hard time sleeping. He has been evaluated by ENT. He did have significant nasal congestion and also component of upper airway cough syndrome. He has been uncertain treatments with partial improvement. He has tried multiple inhalers without any significant improvement. The patient does have oxygen but uses couple L with activity. We did go for brief walking oximetry indeed he did desaturate down to 88% with minimal activity. At this point the patient does have evidence of chronic bronchitis. Likely a component of microaspiration and potentially reflux disease that can potentially worsen his hypersensitivity disease. The patient should be evaluated for connective tissue diseases and hypersensitivity pneumonitis specially with his line of work. But at this point will go ahead and try to my azithromycin 1st. Will get check an EKG and check a barium swallow. Will follow-up in 2-3 months and see his response to therapy. The patient did not really see much improvement with inhalers will hold off at this time. I do believe that with his chronic bronchitis in Acapella valve will be helpful in mucus clearance. In the meantime will continue with his nasal rinsing and nasal therapy. 02/11/2025 the patient is here for a pulmonary follow-up visit. Overall the patient has been doing okay he still complaining of cough chest congestion. Initially was placed on azithromycin but there was a question of a QT prolongation switch over to doxycycline. Did not see any significant improvement in the mucus burden. Patient also did receive the Acapella valve but he was not sure how to use it. He did bring it in and we did given the instructions on how to use it appropriately. He has been sleeping elevated then that is been helping. Ultimately underwent is barium swallow demonstrating obvious laryngeal and also subglottic penetration of the barium consistent with aspirations. 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 Explained to him that the aspiration could not only cause interstitial lung disease but it can also worsen her. Therefore, will make a referral to speech pathology closer to his home in order to start therapy. In the meantime we did talk about dysphagia techniques that he can try in the meantime. Will start him on chlorhexidine mouthwash to help him with decreasing the risk of bacterial aspirations. In addition to that he was start on inhaler to try decrease the inflammation caused by the aspiration in the airways. The patient follow-up in 2-3 months. He has not issues prior to that he will call for an earlier assessment. 05/06/2025 the patient is here for a pulmonary follow-up visit. Overall he is doing okay. the patient does complain of persistent productive cough. He already is followed up with speech therapy due to his evidence of aspiration. He has been working on his swallow technique and seems to be doing better. From a cardiac status the patient is also doing better. He is more short of breath though he has noticed that his oxygen needs have increased. We did go for brief walking oximetry in the office and indeed he does need up to 4-5 L pulse With activity. We did talk about continues flow but it makes it hard for him to carry the tanks. Therefore he will continue to try to stay with the conserving device. The patient has not had a CT scan since 2023. He does have evidence of pulmonary fibrosis with a UIP pattern which is concerning. In addition to that his last PFTs were back in 2023 and will have to repeat the findings specially if there is any progression of the IPF. We did talk about the fact that if indeed he has IPF that this is a progressive disease. We did talk about antifibrotic agents and he has spoken to other filler block inserter remover in the past but he has been reluctant due to the side effects will go ahead and get the CAT scan and also some PFTs and then discuss that further. Although I do believe that antifibrotic therapy will be groves in his therapy. We can also consider a small dose of cortical steroids to see this provides some relief as well for now though will try him on doxycycline again. We did try to get a sputum culture but we were able to do it successfully. The patient will follow-up in the breathing studies in the CAT scan. [facility] Medical History (Updated 05/06/25 @ 16:02 by Librado Dumont MD) IPF (idiopathic pulmonary fibrosis) Asthma-COPD overlap syndrome Aspiration pneumonitis Upper airway cough syndrome Chronic bronchitis Emphysema (subcutaneous) (surgical) resulting from a procedure ILD (interstitial lung disease) Chronic cough Social History (Updated 02/11/25 @ 10:52 by Bhavana Cadena CMA) Patient Tobacco Use Status: Never used Tobacco Review of Systems Const Denies weight loss Eyes Reports no additional complaints ENT Reports nasal congestion, Reports nasal discharge and Reports post nasal drip Card Denies chest pain and Reports dyspnea on exertion Resp Reports chest congestion, Reports cough, Reports dyspnea on exertion and Denies wheezing GI Denies dyspepsia Musc Reports no additional complaints Skin/Breast Denies rash Neuro Reports no additional complaints Jeremiah/Lymph Reports no additional complaints Aller/Immun Denies wheezing Physical Exam Vital Signs: Last Vital Signs Pulse 54 05/06/25 10:24 BP 140/60 H 05/06/25 10:24 Pulse Ox 94 05/06/25 10:24 Oxygen Delivery Method Room Air 05/06/25 10:24 BMI result Body Mass Index 27.8 Const General: comfortable HEENT Head: Yes normocephalic Neck Neck: Yes supple Chest Chest palpation & inspection: normal inspection of the chest Resp Effort & Inspection: normal respiratory effort Auscultation: rales bilateral in the lower lung leon Cardio Heart sounds: S1 normal heart sound present and S2 normal heart sound present GI Palpation (GI): Soft to palpation Skin General skin exam: no rashes or lesions noted Extrem General: Yes no clubbing, cyanosis or edema Assessment & Plan Assessment & Plan (1) Chronic cough: Code(s): R05.3 - Chronic cough Category: Medical (2) ILD (interstitial lung disease): Comment: Probablu UIP, ?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 Code(s): J84.9 - Interstitial pulmonary disease, unspecified Category: Medical (3) Chronic bronchitis: Code(s): J42 - Unspecified chronic bronchitis Category: Medical Qualifiers: Chronic bronchitis type: mixed simple and mucopurulent Qualified Code(s): J41.8 - Mixed simple and mucopurulent chronic bronchitis (4) Upper airway cough syndrome: Code(s): R05.8 - Other specified cough Category: Medical (5) Aspiration pneumonitis: Code(s): J69.0 - Pneumonitis due to inhalation of food and vomit Category: Medical (6) Asthma-COPD overlap syndrome: Code(s): J44.89 - Other specified chronic obstructive pulmonary disease Category: Medical (7) IPF (idiopathic pulmonary fibrosis): Code(s): J84.112 - Idiopathic pulmonary fibrosis Category: Medical Plan continue nasal therapy continue Wixela neti bottle with bidesonide CT chest PFTs Sputum Cx PFTs/with F/U should sleep elevated Use portable oxygen 4-5L/pulse with activity CPT with acapella valve 2 times a day Start Doxycycline BID F/U 3 months Orders: Orders PFT pulmonary function test Today J84.9 - Interstitial pulmonary disease, unspecified CT chest wo IV con Today J84.112 - Idiopathic pulmonary fibrosis, J84.9 - Interstitial pulmonary disease, unspecified Medications: New budesonide 0.5 mg (2 mL) inhalation DAILY 60 mL 2RF 30 days J44.89 - Other specified chronic obstructive pulmonary disease doxycycline monohydrate 100 mg PO BID 42 tabs 0RF 21 days Coding Level of Care Code Est Pt Level 5 (72959) Complex EM visit Add On G2211 Diagnoses Chronic cough R05.3 ILD (interstitial lung disease) J84.9 Mixed simple and mucopurulent chronic bronchitis J41.8 Chronic bronchitis type: mixed simple and mucopurulent Upper airway cough syndrome R05.8 Aspiration pneumonitis J69.0 Asthma-COPD overlap syndrome J44.89 IPF (idiopathic pulmonary fibrosis) J84.112 Time Spent (min) 45
[2025-05-06 10:24] VITALS: BP 140/60; PULSE 54; O2SAT 94; BMI 27.8
== END 2025-05-06 11:18 | disposition home or self-care (01) ==
LOC: HO.HPS 10:11
PROVIDERS: PCP Family Medicine; Visit Provider Hospitalist
DX: R05.3 Chronic cough (principal); J84.9 Interstitial pulmonary disease, unspecified; J41.8 Mixed simple and mucopurulent chronic bronchitis; R05.8 Other specified cough; J69.0 Pneumonitis due to inhalation of food and vomit; J44.89 Other specified chronic obstructive pulmonary disease; J84.112 Idiopathic pulmonary fibrosis
CPT/HCPCS: 99215; G2211

== ENCOUNTER → 2025-05-06 10:10 | Outpatient (BNVA) | payer MEDICARE, SELFPAY | PROVIDERS: PCP Family Medicine; Visit Provider Hospitalist | DX: R05.3 Chronic cough (principal); J84.9 Interstitial pulmonary disease, unspecified; J41.8 Mixed simple and mucopurulent chronic bronchitis; R05.8 Other specified cough; J69.0 Pneumonitis due to inhalation of food and vomit; J44.89 Other specified chronic obstructive pulmonary disease; J84.112 Idiopathic pulmonary fibrosis | CPT/HCPCS: 99212 ==

== ENCOUNTER 2025-07-04 08:52 | Outpatient (REF) | payer MEDICARE, SELFPAY ==
--- NOTE | ~2025-07-04 | CT_ITS ---
CLINICAL HISTORY: J84.9 - Interstitial pulmonary disease, unspecified --- Additional Notes or Special Instructions: pt prefers [facility] Exam: CT chest without IV contrast Comparison: None provided Findings: No acute infiltrates. Bilateral subpleural interstitial reticulation with associated mild ground-glass opacity, thickened bronchovascular bundles and mild traction bronchiectasis from apex to lung base, more conspicuous at the lung bases, no convincing honeycombing. Perifissural nodule 7 mm right middle lobe on image 327, series 3. No pleural effusion or pneumothorax. Central airway is patent. Cardiomegaly, nonaneurysmal aorta, moderate coronary artery calcification. No pericardial effusion. No bulky lymph nodes. Status post median sternotomy. Imaged lower neck, chest wall are unremarkable. Absent left kidney. Diverticulosis coli. Thoracic spine degenerative spondylosis. Status post left shoulder arthroplasty, erosive changes with cortical discontinuity of the glenoid. 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 Impression: 1. 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 2. Right middle lobe pulmonary nodule 7 mm, Recommend 6-[address] follow-up, then CT at 18-24 month. 3. 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 4. Cardiomegaly and atherosclerotic disease. 5. Diverticulosis coli. This document has been electronically signed by: Mamie Saldana MD on 07/06/2025 11:57:12
--- OUTSIDE RECORDS SUMMARY | 2025-07-04 08:55 | XMS_ITS | Data Portability ---
Author Organization [place] - [facility], Allergy Address [address] [address] Care Team Providers Care Visual Presentation Manager Name Role Phone [facility] Primary Care Provider Assessment Encounter Date Assessment Date Assessment LastModified by Organization Details LastModified Time 09/03/2024 09/03/2024 Patient describes a chronic cough since around December. He describes some improvement with nasal regimen prescribed by his ENT in [place] with Flonase and nasal saline. Unfortunately he continues with symptoms. My examination today including fiberoptic nasal endoscopy and laryngoscopy was unremarkable with no signs of infection in the sinuses or abnormality of the larynx. There was no pooling of secretions. 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 He is requesting a second opinion with director of pulmonary unit in the [place] area. [email or web address] Not available 09/03/2024 10:39:33 Plan of Treatment Reminders Order Date Submit Date Provider Last Modified By Organization Details Last Modified Time Details Appointments None recorded. Lab None recorded. Referral pulmonologi st referral - pt wishes to have second opinion for chronic cough in setting of pulmonary fibrosis 2024 [id number] [email or web address] Librado Dumont MD, [address] [place] [address] [place], [id number], 14:22:13 Procedures None recorded. Surgeries None recorded. Imaging None recorded. Medication Orders None recorded. Patient TargetsNo targets recorded. Patient InstructionsNo instructions recorded. Reason for Referral Back [facility] Referral for C hronic cough pt wishes to have second opinion for chronic cough in setting of pulmonary fibrosis Referring Physician: Matt Gutiérrez, Otolaryngology, Encounter Date: 09/03/2024 Problems Name Problem SNOMED Code Status Onset Date Resolution Date Notes Provider Name and Address Organization Details Recorded Time Chronic cough 57786062 Active 025 MATT GUTIÉRREZ MD [address] [facility],[place] [address], [place], [address] , [place] - [facility] 10:36:47 Chronic fibrosis of lung 94180044 Active 025 MATT GUTIÉRREZ MD [address] [place] [address],[place] [address], [place], [address] , [facility] - [facility] 10:39:59 Problem Notes None recorded. Procedures Surgical History Date Name Laterality Status Provider Name and Address Organization Details Recorded Time 09/03/2024 FOL_DP completed MATT GUTIÉRREZ MD [address] [place] [address],[place] [address], [place], [address], [place] [facility] 09/03/2024 10:36:39 Imaging Results None recorded. Procedure Notes None recorded. Medical Equipment None Reported. Allergies Allergen ID Allergen Name Allergen Category Reaction Reaction Severity Criticality Documentation Date Start Date Code Code System Note Provider Name and Address Organization Details Recorded Time 694388 Substance with sulfonami de structure and antibacte rial mechanism of action (substanc e) medicatio n Not available Not available Not available 09/03/2024 25480 [id number] SNOMED Patricia davis [facility] 10:03:18 Medications Name Sig Start Date Stop Date Status Note LastModified by Organization Details LastModified Time rosuvastatin 20 mg tablet active Not Available Not Available Not Available Vitals Date Recorded Body height Body mass index (BMI) Body weight Provider Name and Address Organization Details Last Updated DateTime 09/03/2024 177.8 cm 28.4 kg/m2 27319.29 g Patricia Romero [place] [facility] 09/03/2024 10:03:10 Social History None recorded. Functional Status None recorded. Mental Status None recorded. Family History Nothing Reported. Medical History No medical history recorded. Past Encounters Encounter ID Performer Location Encounter Start Date Encounter Closed Date Diagnosis/Indication Diagnosis SNOMED-CT Code Diagnosis ICD10 Code Diagnosis IMO Codes Diagnosis Note [id number] MATT GUTIÉRREZ MD [facility] [address] [place] [address] 09/03/2024 09:44:52 09/03/2024 10:44:49 Chronic cough 54202440 R05.3 Chronic fi brosis of lung 23203713 J84.10 Health Concerns Section Related Observation LastModified by Organization Detai ls LastModified Time None Recorded Concern Status LastModified by Organization Details LastModified Time None Recorded Advance Directives Directive None Recorded Payers Insurance Date Sequence Insurance Name Policy Number Policy Draper Covered Member ID Draper Member ID Guarantor Name 09/12/2024 1 [place]ARE [place]: [employer] Jeovanny Suazo Baca [id number] Jeovanny Baca 09/12/2024 2 [facility] [id number] Jeovanny Suazo Baca [id number] Jeovanny Baca Notes Date Note Type Note Provider Name and Address Organization Details Recorded Time 5 text/html ROS as noted in the HPI chronic coughnot associated with eatingno resolution with various inhalers5 while gardening he got irritation in lungsCT chest - pulm fibrosis is progressiveintermittent oxygen use when activerx prednisone - no sig responseOTC meds, robitussin no sig response04/14/24 ENT at [facility], rx flonase and sinus irrigation, endoscopy noted mucus in sinus. felt okxjibbsgru99/7/24 ENT at [facility] noted improvement on nasal exam MATT GUTIÉRREZ MD [address] [facility],[place] [address], [place], [address], [place] [facility] 09/03/2024 10:40:23
== END 2025-07-04 08:53 | disposition home or self-care (01) ==
LOC: HO.CT 08:52
PROVIDERS: PCP Urology; Visit Provider Hospitalist
DX: J98.4 Other disorders of lung (principal); J84.112 Idiopathic pulmonary fibrosis
CPT/HCPCS: 71250

== ENCOUNTER → 2025-07-04 08:55 | Outpatient (BNV) | payer MEDICARE, SELFPAY | PROVIDERS: PCP Urology; Visit Provider Radiology Diagnostic Radiology | DX: I25.10 Atherosclerotic heart disease of native coronary artery without angina pectoris (principal); K57.30 Diverticulosis of large intestine without perforation or abscess without bleeding; I51.7 Cardiomegaly; R91.1 Solitary pulmonary nodule; Z96.612 Presence of left artificial shoulder joint | CPT/HCPCS: 71250 ==

== ENCOUNTER 2025-07-24 09:33 | Outpatient (REF) | payer MEDICARE, SELFPAY ==
--- NOTE | 2025-07-24 09:54 | PFT_ITS ---
Indication: ILD Spirometry FEV1 to FVC 85%; FEV1 2.74 L; FVC 3.23 L. No significant response to bronchodilators noted Lung Volumes Total lung capacity 82% predicted; residual volume 65% predicted Diffusion Capacity DLCO 51% predicted Comparisons None Interpretation No obstructive nor restrictive ventilatory defects identified. No significant response to bronchodilators noted. Normal maximum voluntary ventilation. Lung volumes are low normal consistent with the ILD pulmonary fibrosis. The patient does appear to have a moderate diffusion impairment secondary to the parenchymal lung disease. Clinical correlation warranted. MTDD
[2025-07-24 10:43] VITALS: PULSE 55
== END 2025-07-24 09:34 | disposition home or self-care (01) ==
LOC: HO.RESP 09:33
PROVIDERS: PCP Urology; Visit Provider Hospitalist
DX: J84.9 Interstitial pulmonary disease, unspecified (principal)
CPT/HCPCS: 94060; 94640; 94727; 94729

== ENCOUNTER 2025-07-24 10:32 | Outpatient (AMB) | payer MEDICARE, SELFPAY ==
[2025-07-24 10:34] VITALS: BP 138/64; PULSE 64; O2SAT 94; BMI 27.7
--- NOTE | 2025-07-24 10:34 | A.OFFVIS_ITS ---
Vital Signs 07/24/25 10:34 Height 5 ft 10 in Weight 192 lb 14.472 oz BMI 27.7 BP 138/64 Blood Pressure Location Lt brachial Position Sitting Pulse 64 Pulse Source Pulse Oximeter Pulse Oximetry (%) 94 Oxygen Delivery Method Room Air Intake Visit Reasons: ILD/Same Day PFT Location Analyst Required: No Accompanied by: Spouse Allergies Sulfa (Sulfonamide Antibiotics) Allergy (Intermediate, Verified 07/24/25 10:40) Vomiting HPI Comments Details: The patient is an 84-year-old gentleman who has been a lifelong very [place]. The patient has had worsening dyspnea on exertion. Wkux-va-efacilko severity. He has been evaluated by pulmonary in the past at [facility]. 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 Multiple CAT scans have been done. Apparently the last 1 was back in 2023 demonstrating pretty stable disease. He does state that his doctors have told him that this has been some slow progression. He also had pulmonary function studies in 2023 which I personally reviewed demonstrating a mild restrictive ventilatory defect consistent with his interstitial lung disease. What brings him in today is a worsening cough. Congestive in nature. Moderate severity. Worse when he lays flat. Sometimes has a hard time sleeping. He has been evaluated by ENT. He did have significant nasal congestion and also component of upper airway cough syndrome. He has been uncertain treatments with partial improvement. He has tried multiple inhalers without any significant improvement. The patient does have oxygen but uses couple L with activity. We did go for brief walking oximetry in maed he did desaturate down to 88% with minimal activity. At this point the patient does have evidence of chronic bronchitis. Likely a component of microaspiration and potentially reflux disease that can potentially worsen his hypersensitivity disease. The patient should be evaluated for connective tissue diseases and hypersensitivity pneumonitis specially with his line of work. But at this point will go ahead and try to my azithromycin 1st. Will get check an EKG and check a barium swallow. Will follow-up in 2-3 months and see his response to therapy. The patient did not really see much improvement with inhalers will hold off at this time. I do believe that with his chronic bronchitis in Acapella valve will be helpful in mucus clearance. In the meantime will continue with his nasal rinsing and nasal therapy. 02/11/2025 the patient is here for a pulmonary follow-up visit. Overall the patient has been doing okay he still complaining of cough chest congestion. Initially was placed on azithromycin but there was a question of a QT prolongation switch over to doxycycline. Did not see any significant improvement in the mucus burden. Patient also did receive the Acapella valve but he was not sure how to use it. He did bring it in and we did given the instructions on how to use it appropriately. He has been sleeping elevated then that is been helping. Ultimately underwent is barium swallow demonstrating obvious laryngeal and also subglottic penetration of the barium consistent with aspirations. 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 Explained to him that the aspiration could not only cause interstitial lung disease but it can also worsen her. Therefore, will make a referral to speech pathology closer to his home in order to start therapy. In the meantime we did talk about dysphagia techniques that he can try in the meantime. Will start him on chlorhexidine mouthwash to help him with decreasing the risk of bacterial aspirations. In addition to that he was start on inhaler to try decrease the inflammation caused by the aspiration in the airways. The patient follow-up in 2-3 months. He has not issues prior to that he will call for an earlier assessment. 05/06/2025 the patient is here for a pulmonary follow-up visit. Overall he is doing okay. the patient does complain of persistent productive cough. He already is followed up with speech therapy due to his evidence of aspiration. He has been working on his swallow technique and seems to be doing better. From a cardiac status the patient is also doing better. He is more short of breath though he has noticed that his oxygen needs have increased. We did go for brief walking oximetry in the office and indeed he does need up to 4-5 L pulse With activity. We did talk about continues flow but it makes it hard for him to carry the tanks. Therefore he will continue to try to stay with the conserving device. The patient has not had a CT scan since 2023. He does have evidence of pulmonary fibrosis with a UIP pattern which is concerning. In addition to that his last PFTs were back in 2023 and will have to repeat the findings specially if there is any progression of the IPF. We did talk about the fact that if indeed he has IPF that this is a progressive disease. We did talk about antifibrotic agents and he has spoken to other aeronautical engineer in the past but he has been reluctant due to the side effects will go ahead and get the CAT scan and also some PFTs and then discuss that further. Although I do believe that antifibrotic therapy will be groves in his therapy. We can also consider a small dose of cortical steroids to see this provides some relief as well for now though will try him on doxycycline again. We did try to get a sputum culture but we were able to do it successfully. The patient will follow-up in the breathing studies in the CAT scan. 07/24/2025 the patient is here for pulmonary follow-up visit. Overall he is doing okay. He was hospitalized briefly at [facility] because he developed significant dizziness lightheadedness along with diaphoresis. He did call the ambulance to come to the hospital. He was found to be hypotensive and he would receive IV fluid hydration. Also started antibiotics and steroids. She did require oxygen during the hospital stay. It is felt that he would benefit from continuous oxygen. Currently has a POC that goes up to 6 L pulse. He also has a concentrator at home that he typically does not use. He is following closely with the speech therapist and he is following the recommendations. He did undergo a repeat CT scan of the chest that I personally reviewed and also underwent a pulmonary function study. The pulmonary function study actually shows some slight improvement or trend improvement when compared to last year's. He does not have any evidence of any definitive obstructive nor restrictive ventilatory defects. Although he does have a moderate diffusion impairment. We again did go for a walking oximetry the patient did well on 5 L pulse will be walk for 6 minutes any maintain a pulse ox between 91-93%. Therefore seems to be doing good with a pulse and I do not believe a continuous flow oxygen tank would be reasonable at this time specially will make it hard for him to have portability outside of the home. He knows to be careful with reflux disease. He is sleeping elevated and will go ahead and stop the chlorhexidine mouthwash right now. He will continue with the Wixela. Will go ahead and add Daliresp for his chronic bronchitis also because the PD4 inhibitors have been shown to decrease the risk of pulmonary fibrosis. He will continue the POC for portability outside of the home and the patient will follow -up in the springtime. If any issues arise prior to that he can always call for further recommendations. Of note if he does tolerate the Daliresp he can always call so I can send him the higher dose. 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 ILD (interstitial lung disease) Chronic cough Social History Patient Tobacco Use Status: Never used Tobacco Review of Systems Const Denies weight loss Eyes Reports no additional complaints ENT Reports nasal congestion, Reports nasal discharge and Reports post nasal drip Card Denies chest pain and Reports dyspnea on exertion Resp Reports chest congestion, Reports cough, Reports dyspnea on exertion and Denies wheezing GI Denies dyspepsia Musc Reports no additional complaints Skin/Breast Denies rash Neuro Reports no additional complaints Jeremiah/Lymph Reports no additional complaints Aller/Immun Denies wheezing Physical Exam Vital Signs: Last Vital Signs Pulse 64 07/24/25 10:34 BP 138/64 07/24/25 10:34 Pulse Ox 94 07/24/25 10:34 Oxygen Delivery Method Room Air 07/24/25 10:34 BMI result Body Mass Index 27.7 Const General: comfortable HEENT Head: Yes normocephalic Neck Neck: Yes supple Chest Chest palpation & inspection: normal inspection of the chest Resp Effort & Inspection: normal respiratory effort Auscultation: rales bilateral in the lower lung leon Cardio Heart sounds: S1 normal heart sound present and S2 normal heart sound present GI Palpation (GI): Soft to palpation Skin General skin exam: no rashes or lesions noted Extrem General: Yes no clubbing, cyanosis or edema Assessment & Plan Assessment & Plan (1) Chronic cough: Code(s): R05.3 - Chronic cough Category: Medical (2) ILD (interstitial lung disease): Comment: Probablu UIP, ?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 Code(s): J84.9 - Interstitial pulmonary disease, unspecified Category: Medical (3) Chronic bronchitis: Code(s): J42 - Unspecified chronic bronchitis Category: Medical Qualifiers: Chronic bronchitis type: mixed simple and mucopurulent Qualified Code(s): J41.8 - Mixed simple and mucopurulent chronic bronchitis (4) Upper airway cough syndrome: Code(s): R05.8 - Other specified cough Category: Medical (5) Aspiration pneumonitis: Code(s): J69.0 - Pneumonitis due to inhalation of food and vomit Category: Medical (6) Asthma-COPD overlap syndrome: Code(s): J44.89 - Other specified chronic obstructive pulmonary disease Category: Medical (7) IPF (idiopathic pulmonary fibrosis): Code(s): J84.112 - Idiopathic pulmonary fibrosis Category: Medical Plan continue nasal therapy continue Wixela neti bottle with bidesonide should sleep elevated Use portable oxygen 4-5L/pulse with activity CPT with acapella valve 2 times a day Benzonates as needed start Daliresp 250mcg-->500mcg F/U 3 months Medications: New benzonatate 200 mg PO BID PRN 60 caps 8RF cough 30 days roflumilast (Daliresp) 250 mcg PO DAILY 30 tabs 11RF 30 days J44.9 - Chronic obstructive pulmonary disease, unspecified Coding Level of Care Code Complex visit Add On G2211 Diagnoses Chronic cough R05.3 ILD (interstitial lung disease) J84.9 Mixed simple and mucopurulent chronic bronchitis J41.8 Chronic bronchitis type: mixed simple and mucopurulent Upper airway cough syndrome R05.8 Aspiration pneumonitis J69.0 Asthma-COPD overlap syndrome J44.89 IPF (idiopathic pulmonary fibrosis) J84.112 Time Spent (min) 60
== END 2025-07-24 13:42 | disposition home or self-care (01) ==
LOC: HO.HPS 10:33
PROVIDERS: PCP Family Medicine; Visit Provider Hospitalist
DX: J84.9 Interstitial pulmonary disease, unspecified (principal)
CPT/HCPCS: 94060; 94727; 94729; 99215